=== PATIENT | male | born 1955 | race African-American/Black ===

== ENCOUNTER 2017-06-07 23:12 | Inpatient (IN) | payer MEDICAID ==
[2017-06-07] MEDS ORDERED: Sodium Chloride 0.9% 1,000 ML IV ONE (23:39)
[2017-06-08 00:22] LABS: % BASOPHILS 0.1 % (0.0-2.0); % EOSINOPHILS 2.9 % (0.0-5.0); % LYMPHOCYTES 24.2 % (20.0-50.0); % MONOCYTES 2.8 % (2.0-10.0); EOSINOPHILE ABSOLUTE 0.2 Th/cmm (0.1-0.4); HEMATOCRIT 39.2 % (41.0-60); HEMOGLOBIN 12.5 gm/dL (12-16); LYMPHOCYTE ABSOLUTE 1.9 Th/cmm (1.5-3.0); MEAN CELL VOLUME 94.6 fl (80-99); MEAN CORPUSCULAR HEMOGLOBIN 30.2 pg (26.0-30.0); MEAN CORPUSCULAR HGB CONC 31.9 pg (28.0-36.0); MEAN PLATELET VOLUME 8.4 fl; MONOCYTE ABSOLUTE 0.2 Th/cmm (0.3-1.0); NEUTROPHILE ABSOLUTE 5.6 Th/cmm (1.8-8.0); PLATELET COUNT 258 Th/cmm (150-400); RED BLOOD COUNT 4.14 Mil/cmm (4.30-5.70); RED CELL DISTRIBUTION WIDTH 13.5 % (11.5-20.0); WHITE BLOOD COUNT 7.9 Th/cmm (4.8-10.8)
[2017-06-08 00:31] LABS: INR 1.21 (0.5-1.4); PROTHROMBIN TIME (TEST) 12.7 SECONDS (9.5-11.5)
[2017-06-08 00:41] LABS: ALB/GLOB RATIO 0.9 (1.0-1.8); ALBUMIN 3.8 gm/dL (4.2-5.5); ANION GAP 13.3 (7.0-16.0); BILIRUBIN,TOTAL 0.3 mg/dL (0.3-1.0); CARBON DIOXIDE 25.9 mEq/L (21.0-31.0); GFR AFRICAN-AMERICAN 43.6 ml/min (>90); POTASSIUM SERUM 4.2 mEq/L (3.5-5.1); TOTAL PROTEIN,SERUM 8.1 gm/dL (6.0-8.3)
--- NOTE | 2017-06-08 01:30 | ED Physician Chart ---
ED Chief Complaint/HPI - Patient Information Date Seen:: 06/07/17 Time Seen:: 23:10 Chief Complaint:: Abdominal Pain History of Present Illness:: onset x one day of diffuse, crampy abdominal pain, diarrhea x 1 tonight; no report of trauma, H/As, neck pain, C/P, SOB, cough, A/N/V/C, fever, chills, or urinary s/s Allergies:: Allergies Allergy/AdvReac Type Severity Reaction Status Date / Time No Known Allergies Allergy Verified 06/07/17 23:16 Vitals:: Vital Signs - 8 hr 06/07/17 23:15 Temp 97.9 F HR 94 RR 18 BP 149/98 O2 Sat % 100 Historian:: Patient, EMS Review:: Nurse's Note Reviewed, Old Chart Reviewed, EMS run form Reviewed ED Review of Systems - Review of Systems General/Constitutional: No fever, No chills, No weight loss, No weakness, No diaphoresis, No edema, No loss of appetite Skin: No skin lesions, No rash, No bruising Head: No headache, No light-headedness Eyes: No loss of vision, No pain, No diplopia ENT: No earache, No nasal drainage, No sore throat, No tinnitus Neck: No neck pain, No swelling, No thyromegaly, No stiffness, No mass noted Cardio Vascular: No chest pain, No palpitations, No PND, No orthopnea, No edema Pulmonary: No SOB, No cough, No sputum, No wheezing GI: Nausea, Vomiting, Diarrhea, Pain, No melena, No hematochezia, No constipation, No hematemesis G/U: No dysuria, No frequency, No hematuria, No nacturia Musculoskeletal: No bone or joint pain, No back pain, No muscle pain Endocrine: No polyuria, No polydipsia Psychiatric: Prior psych history, Depression, Anxiety, No suicidal ideation, No homicidal ideation, No auditory hallucination, No visual hallucination Hematopoietic: No bruising, No lymphadenopathy Allergic/Immuno: No urticaria, No angioedema Neurological: No syncope, No focal symptoms, No weakness, No paresthesia, No headache, No seizure, No dizziness, Confusion, No vertigo ED Past Medical History - Past Medical History Obtainable: Yes Past Medical History: HTN, Dyslipidemia, Dementia Family History: HTN Social History: Non Smoker, No Alcohol, No Drug Use, Single, Care Facility Surgical History: None Psychiatricy History: Depression, Schizophrenia, Bipolar, Dementia Medication: Reviewed Family Medical History - Family Member Mother History Unknown: Yes ED Physical Exam - Physical Examination General/Constitutional: Awake, Well-developed, well-nourished, Alert, No distress, GCS 15, Non-toxic appearing, Ambulatory Head: Atraumatic Eyes: Lids, conjuctiva normal, PERRL, EOMI Skin: Nl inspection, No rash, No skin lesions, No ecchymosis, No lymphadenopathy Other Skin comments:: Poor turgor with dry MM ENMT: External ears, nose nl, TM canals nl, Nasal exam nl, Lips, teeth, gums nl , Oropharynx nl, Tonsils nl Neck: Nontender, Full ROM w/o pain, No JVD, No nuchal rigidity, No bruit, No mass, No stridor Respiratory: Nl effort/Exclusion, Clear to Auscultation, No Wheeze/Rhonchi/Rales Cardio Vascular: RRR, No murmur, gallop, rubs, NL S1 S2, Carotid/Femoral/Distal pulses equal bilaterally GI: No tenderness/rebounding/guarding, No organomegaly, No hernia, Normal BS's, Nondistended, No mass/bruits, No McBurney tenderness, Rectum exam nl : No CVA tenderness Extremities: No tenderness or effusion, Full ROM, normal strength in all extremities, No edema, Normal digits & nails Neuro/Psych: DTR's symmetric, Normal sensory exam, Normal motor strength, Judgement/insight normal, Mood normal, Normal gait, No focal deficits Other Neuro/Psych comments:: Disoriented and Confused Misc: Normal back, No paraspinal tenderness ED Labs/Radiology/EKG Results - Lab Results Results: Laboratory Tests 06/07/17 06/07/17 06/07/17 23:59 23:59 23:59 WBC 7.9 RBC 4.14 L Hgb 12.5 Hct 39.2 L MCV 94.6 MCH 30.2 H MCHC Differential 31.9 RDW 13.5 Plt Count 258 MPV 8.4 Neutrophils % 70.0 Lymphocytes % 24.2 Monocytes % 2.8 Eosinophils % 2.9 Basophils % 0.1 PT 12.7 H INR 1.21 Sodium Potassium Chloride Carbon Dioxide Anion Gap BUN Creatinine Est GFR ( Amer) Est GFR (Non-Af Amer) BUN/Creatinine Ratio Glucose Calcium Total Bilirubin AST ALT Alkaline Phosphatase Creatine Kinase Troponin I B-Natriuretic Peptide 12.8 Total Protein Albumin Globulin Albumin/Globulin Ratio Triglycerides Cholesterol LDL Cholesterol Direct HDL Cholesterol Amylase Lipase 06/07/17 06/07/17 23:59 23:59 WBC RBC Hgb Hct MCV MCH MCHC Differential RDW Plt Count MPV Neutrophils % Lymphocytes % Monocytes % Eosinophils % Basophils % PT INR Sodium 136 Potassium 4.2 Chloride 101 Carbon Dioxide 25.9 Anion Gap 13.3 BUN 42 H Creatinine 2.0 H Est GFR ( Amer) 43.6 Est GFR (Non-Af Amer) 36.0 BUN/Creatinine Ratio 21.0 Glucose 91 Calcium 10.0 Total Bilirubin 0.3 AST 20 ALT 25 Alkaline Phosphatase 140 H Creatine Kinase 50 Troponin I 0.01 B-Natriuretic Peptide Total Protein 8.1 Albumin 3.8 L Globulin 4.3 Albumin/Globulin Ratio 0.9 L Triglycerides 104 Cholesterol 147 LDL Cholesterol Direct 88 HDL Cholesterol 39 Amylase 60 Lipase 42 Comments:: unremarkable - EKG Interpretations EKG Time:: 23:30 Rate & Rhythm: 94; NSR Comments:: non-specific st-t changes ED Septic Shock - . Is Septic Shock (SBP<90, OR Lactate>4 mmol\L) present?: No - <6hrs of presentation: Vital Signs: Vital Signs - 8 hr 06/07/17 23:15 Temp 97.9 F HR 94 RR 18 BP 149/98 O2 Sat % 100 ED Reassessment (Disposition) - Reassessment Reassessment Condition:: Improved - Diagnosis Diagnosis:: Poor Oral Intake; Abdominal Pain; Dehydration; AGE; Gastroenteritis - Aftercare/Follow up Instructions Aftercare/Follow-Up Instructions:: Counseled pt regarding lab results/diagnosis & need follow up, Counseled pt & family regarding lab results/diagnosis & need follow up - Patient Disposition Discharge/Transfer:: Acute Care w/in this hosp Accepting Physician:: Dr. Long Time Called:: [id number] Time Responded:: 23:50 Admitted to:: Med/Surg Spoke to:: Dr. Long Admitting Medical Physician:: Dr. Long Condition at Disposition:: Stable, Improved
[2017-06-08 06:54] LABS: URINE MICROSCOPIC INDICATED? YES; URINE SOURCE CLEAN C
[2017-06-08 07:13] LABS: URINE BILIRUBIN NEGATIVE (NEGATIVE); URINE BLOOD NEGATIVE (NEGATIVE); URINE GLUCOSE (UA) NEGATIVE (NEGATIVE); URINE KETONE NEGATIVE (NEGATIVE); URINE LEUKOCYTE ESTERASE NEGATIVE (NEGATIVE); URINE NITRATE NEGATIVE (NEGATIVE); URINE PH 5.5 (4.6 - 8.0); URINE PROTEIN 30 mg/dL (NEGATIVE); URINE UROBILINOGEN 0.2 E.U./dL (0.2 - 1.0)
[2017-06-08 07:21] LABS: URINE BACTERIA FEW /hpf (NONE SEEN); URINE CLARITY CLEAR (CLEAR); URINE COLOR YELLOW; URINE EPITHELIAL CELLS OCCASIONAL /lpf (FEW); URINE RBC NONE SEEN /hpf (0-5); URINE WBC 0-2 /hpf (0-5)
[2017-06-08 07:22] LABS: URINE SPERM FEW /hpf (NONE SEEN)
[2017-06-08] MEDS ORDERED: Acetaminophen 500 MG TAB PO PRN (09:16)
[2017-06-08] MEDS ORDERED: Albuterol Nebulizer 2.5mg/3mL HHN PRN (09:18)
[2017-06-08] MEDS ORDERED: Maalox 30 mL Cup PO PRN (09:18)
[2017-06-08] MEDS: Sodium Chloride 0.9% 1,000 ML IV SCH (11:01)
[2017-06-08] MEDS: INSULIN ASPART, RECOMBINANT 100 UNITS/ML SUBQ SCH ×3 (11:09→20:32)
--- NOTE | 2017-06-08 11:31 | Internal Medicine Prog Note ---
Internal Medicine Subjective - Subjective Service Date: 06/08/17 ([facility] dictated [id number]) Internal Medicine Objective - Results Result Diagrams: 06/07/17 23:59 06/07/17 23:59 Recent Labs: Laboratory Last Values WBC 7.9 Th/cmm (4.8-10.8) 06/07/17 23:59 RBC 4.14 Mil/cmm (4.30-5.70) L 06/07/17 23:59 Hgb 12.5 gm/dL (12-16) 06/07/17 23:59 Hct 39.2 % (41.0-60) L 06/07/17 23:59 MCV 94.6 fl (80-99) 06/07/17 23:59 MCH 30.2 pg (26.0-30.0) H 06/07/17 23:59 MCHC Differential 31.9 pg (28.0-36.0) 06/07/17 23:59 RDW 13.5 % (11.5-20.0) 06/07/17 23:59 Plt Count 258 Th/cmm (150-400) 06/07/17 23:59 MPV 8.4 fl 06/07/17 23:59 Neutrophils % 70.0 % (40.0-80.0) 06/07/17 23:59 Lymphocytes % 24.2 % (20.0-50.0) 06/07/17 23:59 Monocytes % 2.8 % (2.0-10.0) 06/07/17 23:59 Eosinophils % 2.9 % (0.0-5.0) 06/07/17 23:59 Basophils % 0.1 % (0.0-2.0) 06/07/17 23:59 PT 12.7 SECONDS (9.5-11.5) H 06/07/17 23:59 INR 1.21 (0.5-1.4) 06/07/17 23:59 Sodium 136 mEq/L (136-145) 06/07/17 23:59 Potassium 4.2 mEq/L (3.5-5.1) 06/07/17 23:59 Chloride 101 mEq/L (98-107) 06/07/17 23:59 Carbon Dioxide 25.9 mEq/L (21.0-31.0) 06/07/17 23:59 Anion Gap 13.3 (7.0-16.0) 06/07/17 23:59 BUN 42 mg/dL (7-25) H 06/07/17 23:59 Creatinine 2.0 mg/dL (0.7-1.3) H 06/07/17 23:59 Est GFR ( Amer) 43.6 ml/min (>90) 06/07/17 23:59 Est GFR (Non-Af Amer) 36.0 ml/min 06/07/17 23:59 BUN/Creatinine Ratio 21.0 06/07/17 23:59 Glucose 91 mg/dL (70-105) 06/07/17 23:59 POC Glucose 102 MG/DL (70 - 105) 06/08/17 11:07 Calcium 10.0 mg/dL (8.6-10.3) 06/07/17 23:59 Total Bilirubin 0.3 mg/dL (0.3-1.0) 06/07/17 23:59 AST 20 U/L (13-39) 06/07/17 23:59 ALT 25 U/L (7-52) 06/07/17 23:59 Alkaline Phosphatase 140 U/L (34-104) H 06/07/17 23:59 Creatine Kinase 50 U/L (30-223) 06/07/17 23:59 Troponin I 0.01 ng/mL (0.01-0.05) 06/07/17 23:59 B-Natriuretic Peptide 12.8 pg/mL (5.0-100.0) 06/07/17 23:59 Total Protein 8.1 gm/dL (6.0-8.3) 06/07/17 23:59 Albumin 3.8 gm/dL (4.2-5.5) L 06/07/17 23:59 Globulin 4.3 gm/dL 06/07/17 23:59 Albumin/Globulin Ratio 0.9 (1.0-1.8) L 06/07/17 23:59 Triglycerides 104 mg/dL (<150) 06/07/17 23:59 Cholesterol 147 mg/dL (<200) 06/07/17 23:59 LDL Cholesterol Direct 88 mg/dL (75-193) 06/07/17 23:59 HDL Cholesterol 39 mg/dL (23-92) 06/07/17 23:59 Amylase 60 U/L (29-103) 06/07/17 23:59 Lipase 42 U/L (11-82) 06/07/17 23:59 Urine Source CLEAN C 06/08/17 06:45 Urine Color YELLOW 06/08/17 06:45 Urine Clarity CLEAR (CLEAR) 06/08/17 06:45 Urine pH 5.5 (4.6 - 8.0) 06/08/17 06:45 Ur Specific [place] 1.020 (1.005-1.030) 06/08/17 06:45 Urine Protein 30 mg/dL (NEGATIVE) H 06/08/17 06:45 Urine Glucose (UA) NEGATIVE mg/dL (NEGATIVE) 06/08/17 06:45 Urine Ketones NEGATIVE mg/dL (NEGATIVE) 06/08/17 06:45 Urine Blood NEGATIVE (NEGATIVE) 06/08/17 06:45 Urine Nitrate NEGATIVE (NEGATIVE) 06/08/17 06:45 Urine Bilirubin NEGATIVE (NEGATIVE) 06/08/17 06:45 Urine Urobilinogen 0.2 E.U./dL (0.2 - 1.0) 06/08/17 06:45 Ur Leukocyte Esterase NEGATIVE (NEGATIVE) 06/08/17 06:45 Urine RBC NONE SEEN /hpf (0-5) 06/08/17 06:45 Urine WBC 0-2 /hpf (0-5) 06/08/17 06:45 Ur Epithelial Cells OCCASIONAL /lpf (FEW) 06/08/17 06:45 Urine Bacteria FEW /hpf (NONE SEEN) 06/08/17 06:45 Urine Sperm FEW /hpf (NONE SEEN) 06/08/17 06:45 - Physical Exam Vitals and I&O: Vital Signs Temp 98 F 06/08/17 07:23 Pulse 68 06/08/17 10:56 Resp 16 06/08/17 10:56 BP 137/79 06/08/17 07:23 Pulse Ox 97 06/08/17 10:56 Active Medications: Current Medications Acetaminophen (Tylenol Extra Strength) 1,000 mg PO Q6HR PRN PRN Reason: Pain (Mild) Stop: 08/07/17 09:15 Al Hydrox/Mg Hydrox/Simethicone (Maalox) 30 ml PO Q6H PRN PRN Reason: Dyspepsia Stop: 08/07/17 09:17 Albuterol Sulfate (Albuterol 2.5mg/3ml Neb Ud) 2.5 mg HHN Q2HRT PRN PRN Reason: Shortness of Breath or Wheeze Stop: 08/07/17 09:17 Atorvastatin Calcium (Lipitor) 80 mg PO HS [facility] PRN Reason: Protocol Stop: 08/07/17 20:59 Bisacodyl (Dulcolax 10 Mg Supp) 10 mg RC DAILY PRN PRN Reason: Constipation Stop: 08/07/17 09:15 Brimonidine Tartrate (Alphagan 0.1% Oph Soln) 1 drop EACH EYE TID [facility] Stop: 08/07/17 13:59 Chlorthalidone (Hygroton) 50 mg PO DAILY [facility] Stop: 08/08/17 08:59 Docusate Sodium (Colace) 250 mg PO DAILY [facility] Stop: 08/08/17 08:59 Dorzolamide/Timolol (Cosopt Oph Soln) 1 drop EACH EYE BID [facility] Stop: 08/07/17 16:59 Gabapentin (Neurontin) 600 mg PO TID [facility] Stop: 08/07/17 13:59 Glipizide (Glucotrol) 5 mg PO HS [facility] Stop: 08/07/17 20:59 Glipizide (Glucotrol) 10 mg PO QDAC [facility] Stop: 08/08/17 07:29 Sodium Chloride (Nacl 0.9%) 1,000 mls @ 80 mls/hr IV .[id number] [facility] Stop: 08/07/17 09:29 Last Admin: 06/08/17 11:01 Dose: 80 mls/hr Insulin Aspart (Novolog) 0 units SUBQ ACHS [facility] PRN Reason: Protocol Stop: 08/07/17 11:29 Last Admin: 06/08/17 11:09 Dose: Not Given Latanoprost (Xalatan 0.005% Oph Soln) 1 drop EACH EYE HS [facility] Stop: 08/07/17 20:59 Levetiracetam (Keppra) 500 mg PO BID [facility] Stop: 08/07/17 16:59 Lidocaine (Lidoderm 5% Patch) 1 patch TD DAILY [facility] Stop: 08/08/17 08:59 Magnesium Hydroxide (Milk Of Magnesia) 30 ml PO HS [facility] Stop: 08/07/17 20:59 Ondansetron HCl (Zofran) 4 mg IV Q8H PRN PRN Reason: Nausea / Vomiting Stop: 08/07/17 09:17 Pantoprazole Sodium (Protonix) 40 mg PO BID [facility] Stop: 08/07/17 16:59 Rivaroxaban (Xarelto) 20 mg PO DAILY [facility] Stop: 08/07/17 09:59 Last Admin: 06/08/17 11:04 Dose: 20 mg Tamsulosin HCl (Flomax) 0.4 mg PO DAILY [facility] Stop: 08/07/17 09:59 Last Admin: 06/08/17 11:04 Dose: 0.4 mg Vitamin D (Vitamin D) 1,000 iu PO DAILY [facility] Stop: 08/08/17 08:59
--- NOTE | 2017-06-08 14:48 | History & Physical ---
ADMIT DATE: 06/08/2017 CHIEF COMPLAINT: Abdominal pain. HISTORY OF PRESENT ILLNESS: This is a 62-year-old male who is a resident of [facility], admitted here to the med/surg unit due to 1 day history of abdominal pain and diarrhea. The patient did not have any fevers at the correction for further management. The patient is now admitted to the med-surg unit. PAST MEDICAL HISTORY: Hypertension, hyperlipidemia, obesity, glaucoma, CKD, BPH, history of CVA. PAST SURGICAL HISTORY: Unknown. FAMILY HISTORY: Noncontributory. SOCIAL HISTORY: The patient is a correction resident, requiring 24-hour nursing care. REVIEW OF SYSTEMS: GENERAL: Denies any fevers and chills. CARDIOVASCULAR: Denies chest pain. RESPIRATORY: Denies shortness of breath. GASTROINTESTINAL: Denies nausea, vomiting, GI patient complains of nausea, denies any diarrhea. GENITOURINARY: Denies any dysuria. All other systems are reviewed and are negative. PHYSICAL EXAMINATION: GENERAL: The patient is awake, alert, appears weak, in no apparent distress. VITAL SIGNS: Temperature 98, heart rate 80, blood pressure 137/79, respirations 16, O2 96%. HEENT: Head; normocephalic, atraumatic. NECK: Supple. No mass. LUNGS: Clear bilaterally. HEART: Regular rate and rhythm. ABDOMEN: Soft, nontender. LABORATORY DATA: WBC 7.9, H and H ____ and 39.2, platelet of 258. PT 12.7, INR 1.21. Sodium 136, potassium 4.2, chloride 101, BUN 42, creatinine 2.0. Albumin 3.8. ASSESSMENT: 1. Abdominal pain, intractable nausea and diarrhea. 2. Hypertension. 3. Hyperlipidemia. 4. Obesity. 5. Glaucoma. 6. CKD. 7. BPH. 8. History of cerebrovascular accident. PLAN: The patient to be admitted to the med/surg unit. We will get GI on the case. We will get abdominal ultrasound. We will get psychiatry on the case as well. Keep patient on IV fluids for hydration. We will collect stool for ova and parasites and we will continue to follow this patient. JOB# [id number]
[2017-06-08] MEDS ORDERED: Pneumococcal Vaccine 0.5 mL Vial IM ONE (15:03)
[2017-06-08] MEDS: Pantoprazole 40 mg EC Tab PO SCH (17:43)
[2017-06-08] MEDS: Magnesium Hydroxide (MOM) 30 mL UDC PO SCH (20:29)
[2017-06-09] MEDS: Sodium Chloride 0.9% 1,000 ML IV SCH ×2 (01:19→16:30)
[2017-06-09] MEDS: INSULIN ASPART, RECOMBINANT 100 UNITS/ML SUBQ SCH ×4 (06:31→20:50)
[2017-06-09] MEDS ORDERED: Non-Formulary Item 1 EA (Glipizide [Glipizide] 10 MG) PO SCH (07:30)
[2017-06-09] MEDS ORDERED: ALFUZOSIN HCL 10 MG PO SCH (09:00)
[2017-06-09] MEDS ORDERED: Non-Formulary Item 1 EA (Rivaroxaban [Xarelto] 20 MG) PO SCH (09:00)
[2017-06-09] MEDS: Lidocaine 5% Patch TD SCH (10:00)
[2017-06-09] MEDS: Pantoprazole 40 mg EC Tab PO SCH ×2 (10:03→16:30)
--- NOTE | 2017-06-09 11:09 | Diagnostic Imaging Report ---
Abdominal ultrasound HISTORY: Pain Exam is limited due to patient size, body habitus, and bowel gas. The liver exhibits a homogeneous parenchyma. No focal lesions. The gallbladder appears normal. No calculi are seen. No biliary dilatation. The pancreas cannot be seen due to bowel gas. The right kidney is normal in size. A 4 mm echogenic density is noted that may be associated with calculus. No hydronephrosis. A 4.5 cm sonolucent lesion noted in the lower pole consistent with a cyst. The left kidney is normal in size. No focal lesions. No hydronephrosis. No other definite retroperitoneal or intra-abdominal abnormalities. IMPRESSION: 1. Limited exam due to patient size, body habitus, bowel gas 2. 4 mm echogenic density within the right kidney that may represent a calculus. No hydronephrosis. 3. Right renal cyst 4. No other definite acute abnormalities
--- NOTE | 2017-06-09 12:58 | Internal Medicine Prog Note ---
Internal Medicine Subjective - Subjective Patient seen and examined:: with staff, chart reviewed Patient is:: asleep, interactive, arousable, in bed, denies any new complaints Patient Complaints of:: congestion, vomitting, unable to sleep Per staff patient has:: no adverse event, poor appetite, tolerating meds Internal Medicine Objective - Results Result Diagrams: 06/07/17 23:59 06/07/17 23:59 Recent Labs: Laboratory Last Values WBC 7.9 Th/cmm (4.8-10.8) 06/07/17 23:59 RBC 4.14 Mil/cmm (4.30-5.70) L 06/07/17 23:59 Hgb 12.5 gm/dL (12-16) 06/07/17 23:59 Hct 39.2 % (41.0-60) L 06/07/17 23:59 MCV 94.6 fl (80-99) 06/07/17 23:59 MCH 30.2 pg (26.0-30.0) H 06/07/17 23: MCHC Differential 31.9 pg (28.0-36.0) 06/07/17 23: RDW 13.5 % (11.5-20.0) 06/07/17 23:59 Plt Count 258 Th/cmm (150-400) 06/07/17 23:59 MPV 8.4 fl 06/07/17 23:59 Neutrophils % 70.0 % (40.0-80.0) 06/07/17 23:59 Lymphocytes % 24.2 % (20.0-50.0) 06/07/17 23: Monocytes % 2.8 % (2.0-10.0) 06/07/17 23:59 Eosinophils % 2.9 % (0.0-5.0) 06/07/17 23: Basophils % 0.1 % (0.0-2.0) 06/07/17 23:59 PT 12.7 SECONDS (9.5-11.5) H 06/07/17 23:59 INR 1.21 (0.5-1.4) 06/07/17 23:59 Sodium 136 mEq/L (136-145) 06/07/17 23:59 Potassium 4.2 mEq/L (3.5-5.1) 06/07/17 23:59 Chloride 101 mEq/L (98-107) 06/07/17 23:59 Carbon Dioxide 25.9 mEq/L (21.0-31.0) 06/07/17 23:59 Anion Gap 13.3 (7.0-16.0) 06/07/17 23:59 BUN 42 mg/dL (7-25) H 06/07/17 23:59 Creatinine 2.0 mg/dL (0.7-1.3) H 06/07/17 23:59 Est GFR ( Amer) 43.6 ml/min (>90) 06/07/17 23:59 Est GFR (Non-Af Amer) 36.0 ml/min 06/07/17 23:59 BUN/Creatinine Ratio 21.0 06/07/17 23:59 Glucose 91 mg/dL (70-105) 06/07/17 23:59 POC Glucose 97 MG/DL (70 - 105) 06/09/17 12:42 Calcium 10.0 mg/dL (8.6-10.3) 06/07/17 23:59 Total Bilirubin 0.3 mg/dL (0.3-1.0) 06/07/17 23:59 AST 20 U/L (13-39) 06/07/17 23:59 ALT 25 U/L (7-52) 06/07/17 23:59 Alkaline Phosphatase 140 U/L (34-104) H 06/07/17 23:59 Creatine Kinase 50 U/L (30-223) 06/07/17 23:59 Troponin I 0.01 ng/mL (0.01-0.05) 06/07/17 23:59 B-Natriuretic Peptide 12.8 pg/mL (5.0-100.0) 06/07/17 23:59 Total Protein 8.1 gm/dL (6.0-8.3) 06/07/17 23:59 Albumin 3.8 gm/dL (4.2-5.5) L 06/07/17 23:59 Globulin 4.3 gm/dL 06/07/17 23:59 Albumin/Globulin Ratio 0.9 (1.0-1.8) L 06/07/17 23:59 Triglycerides 104 mg/dL (<150) 06/07/17 23:59 Cholesterol 147 mg/dL (<200) 06/07/17 23:59 LDL Cholesterol Direct 88 mg/dL (75-193) 06/07/17 23:59 HDL Cholesterol 39 mg/dL (23-92) 06/07/17 23:59 Amylase 60 U/L (29-103) 06/07/17 23:59 Lipase 42 U/L (11-82) 06/07/17 23:59 Urine Source CLEAN C 06/08/17 06:45 Urine Color YELLOW 06/08/17 06:45 Urine Clarity CLEAR (CLEAR) 06/08/17 06:45 Urine pH 5.5 (4.6 - 8.0) 06/08/17 06:45 Ur Specific [place] 1.020 (1.005-1.030) 06/08/17 06:45 Urine Protein 30 mg/dL (NEGATIVE) H 06/08/17 06:45 Urine Glucose (UA) NEGATIVE mg/dL (NEGATIVE) 06/08/17 06:45 Urine Ketones NEGATIVE mg/dL (NEGATIVE) 06/08/17 06:45 Urine Blood NEGATIVE (NEGATIVE) 06/08/17 06:45 Urine Nitrate NEGATIVE (NEGATIVE) 06/08/17 06:45 Urine Bilirubin NEGATIVE (NEGATIVE) 06/08/17 06:45 Urine Urobilinogen 0.2 E.U./dL (0.2 - 1.0) 06/08/17 06:45 Ur Leukocyte Esterase NEGATIVE (NEGATIVE) 06/08/17 06:45 Urine RBC NONE SEEN /hpf (0-5) 06/08/17 06:45 Urine WBC 0-2 /hpf (0-5) 06/08/17 06:45 Ur Epithelial Cells OCCASIONAL /lpf (FEW) 06/08/17 06:45 Urine Bacteria FEW /hpf (NONE SEEN) 06/08/17 06:45 Urine Sperm FEW /hpf (NONE SEEN) 06/08/17 06:45 - Physical Exam Vitals and I&O: Vital Signs Temp 97.2 F 06/09/17 11:19 Pulse 68 06/09/17 11:22 Resp 16 06/09/17 11:22 BP 130/65 06/09/17 11:19 Pulse Ox 98 06/09/17 11:22 Intake & Output 06/08/17 06/09/17 06/09/17 18:59 06:59 18:59 Intake Total 500 1240 Output Total 800 600 Balance -300 640 Weight (lbs) 113.852 kg 122.016 kg Intake: Intake, IV Amount 1000 Sodium Chloride 0.9% 1, 1000 000 ml @ 80 mls/hr IV . [id number] [facility] Rx#:[id number] Oral 500 240 Output: Urine 800 600 Other: # Voids 800 # Bowel Movements 2 1 Stool Characteristics Soft Liquid Weight Source Bedscale Bedscale Active Medications: Current Medications Acetaminophen (Tylenol Extra Strength) 1,000 mg PO Q6HR PRN PRN Reason: Pain (Mild) Stop: 08/07/17 09:15 Al Hydrox/Mg Hydrox/Simethicone (Maalox) 30 ml PO Q6H PRN PRN Reason: Dyspepsia Stop: 08/07/17 09:17 Albuterol Sulfate (Albuterol 2.5mg/3ml Neb Ud) 2.5 mg HHN Q2HRT PRN PRN Reason: Shortness of Breath or Wheeze Stop: 08/07/17 09:17 Atorvastatin Calcium (Lipitor) 80 mg PO HS [facility] PRN Reason: Protocol Stop: 08/07/17 20:59 Last Admin: 06/08/17 20:29 Dose: 80 mg Bisacodyl (Dulcolax 10 Mg Supp) 10 mg RC DAILY PRN PRN Reason: Constipation Stop: 08/07/17 09:15 Brimonidine Tartrate (Alphagan 0.1% Ophth Soln) 1 drop EACH EYE TID [facility] Stop: 08/07/17 13:59 Last Admin: 06/09/17 10:02 Dose: 1 drop Chlorthalidone (Hygroton) 50 mg PO DAILY [facility] Stop: 08/08/17 08:59 Last Admin: 06/09/17 10:01 Dose: 50 mg Docusate Sodium (Colace) 250 mg PO DAILY [facility] Stop: 08/08/17 08:59 Last Admin: 06/09/17 10:03 Dose: 250 mg Dorzolamide/Timolol (Cosopt Ophth Soln) 1 drop EACH EYE BID [facility] Stop: 08/07/17 16:59 Last Admin: 06/09/17 10:02 Dose: 1 drop Gabapentin (Neurontin) 600 mg PO TID [facility] Stop: 08/07/17 13:59 Last Admin: 06/09/17 10:12 Dose: 600 mg Glipizide (Glucotrol) 5 mg PO HS [facility] Stop: 08/07/17 20:59 Last Admin: 06/08/17 20:30 Dose: 5 mg Glipizide (Glucotrol) 10 mg PO QDAC [facility] Stop: 08/08/17 07:29 Last Admin: 06/09/17 06:36 Dose: Not Given Sodium Chloride (Nacl 0.9%) 1,000 mls @ 80 mls/hr IV .[id number] [facility] Stop: 08/07/17 09:29 Last Admin: 06/09/17 01:19 Dose: 80 mls/hr Insulin Aspart (Novolog) 0 units SUBQ ACHS [facility] PRN Reason: Protocol Stop: 08/07/17 11:29 Last Admin: 06/09/17 12:00 Dose: Not Given Latanoprost (Xalatan 0.005% Ophth Soln) 1 drop EACH EYE HS [facility] Stop: 08/07/17 20:59 Last Admin: 06/08/17 20:40 Dose: Not Given Levetiracetam (Keppra) 500 mg PO BID [facility] Stop: 08/07/17 16:59 Last Admin: 06/09/17 10:04 Dose: 500 mg Lidocaine (Lidoderm 5% Patch) 1 patch TD DAILY [facility] Stop: 08/08/17 08:59 Last Admin: 06/09/17 10:00 Dose: 1 patch Magnesium Hydroxide (Milk Of Magnesia) 30 ml PO HS [facility] Stop: 08/07/17 20:59 Last Admin: 06/08/17 20:29 Dose: 30 ml Ondansetron HCl (Zofran) 4 mg IV Q8H PRN PRN Reason: Nausea / Vomiting Stop: 08/07/17 09:17 Pantoprazole Sodium (Protonix) 40 mg PO BID [facility] Stop: 08/07/17 16:59 Last Admin: 06/09/17 10:03 Dose: 40 mg Rivaroxaban (Xarelto) 20 mg PO DAILY [facility] Stop: 08/07/17 09:59 Last Admin: 06/09/17 10:04 Dose: 20 mg Tamsulosin HCl (Flomax) 0.4 mg PO DAILY [facility] Stop: 08/07/17 09:59 Last Admin: 06/09/17 10:04 Dose: 0.4 mg Vitamin D (Vitamin D) 1,000 iu PO DAILY [facility] Stop: 08/08/17 08:59 Last Admin: 06/09/17 10:02 Dose: 1,000 iu General: congested HEENT: NC/AT, PERRLA, poor dentition Neck: Supple, No thyromegaly, No LAD Lungs: CTAB Cardiovascular: RRR, Normal S1, Normal S2, with murmur Abdomen: soft, non-tender, globular, non-distended, positive bowel sound Extremities: excoriation Neurological: no change Internal Medicine Assmt/Plan - Assessment Assessment: abd pain w n/v htn obesity bph glaucoma cva - Plan Plan: cont on gentle hydration gi follow up will review abd ultrasound cpm dw rn add bactroban to nares
--- NOTE | 2017-06-09 20:05 | Psychosocial Evaluation ---
DATE OF SERVICE: 06/09/2017 REQUESTING PHYSICIAN: Dr. Long. REASON FOR CONSULTATION: Rule out depression. HISTORY OF PRESENT ILLNESS: This patient is a 62-year-old resident of [facility] in [place]. Information obtained by interviewing the patient as well as reviewing the admission paper. JUSTIFICATION OF HOSPITALIZATION: The patient has been admitted over here following abdominal pain and Psychiatric consultation is requested to address the issue of the depression. The patient is spoken to. Chart is reviewed and staff was spoken to. The patient is reporting that he has been friend with the girlfriend in the facility for a couple of weeks and that the girlfriend told him that she just wanted to be a friend and has nothing to do more than that and the patient got upset and has swallowed shampoo in an attempt to hurt himself. The patient has been admitted for diarrhea and the patient is currently medically stabilized and Psychiatric consultation is called to address the issue of the depression. The patient is stating that he is under the care of her psychiatrist and has been on medication for a couple of years. The patient, however, is stating that he is not suicidal. He wants to get some help even when he gets out of the hospital. PAST PSYCHIATRIC HISTORY: The patient denies any prior psychiatric hospitalizations. SOCIAL HISTORY: The patient is a resident of [facility]. The patient is reporting that his mother in July of last year and he does not have any siblings. No other family members are there. MENTAL STATUS EXAMINATION: The patient is a 62-year-old, looking his stated age, moderately obese, cooperative. Eye contact is fair. Mood is noted to be anxious. Affect is constricted. The patient is not suicidal or homicidal. The patient denies any auditory hallucinations. No delusions are noted. Insight and judgment at this time are noted to be fair. Impulse control is also noted to be fair. The patient is motivated for treatment. The patient's coping skills are noted to be fair at this time. The patient is alert and oriented x 3. DIAGNOSTIC IMPRESSION: Major depressive disorder, recurrent and moderate. PLAN: To start the patient on Lexapro and follow the patient with supportive therapy. [facility]# [id number]
[2017-06-09] MEDS: Magnesium Hydroxide (MOM) 30 mL UDC PO SCH (20:45)
--- NOTE | 2017-06-09 23:29 | Consultation ---
DATE OF CONSULTATION: 06/09/2017 GASTROENTEROLOGY CONSULTATION REQUESTING PHYSICIAN: Nitin Long D.O. REASON FOR CONSULTATION: Abdominal pain with nausea and vomiting. HISTORY OF PRESENT ILLNESS: A 62-year-old male with old stroke, glaucoma, obesity, hypertension, BPH, and hyperlipidemia, admitted for vague abdominal pain for a 1-2 day duration with nausea, vomiting and diarrhea. He reportedly drank some shampoo at his nursing facility. He currently complains of no abdominal symptoms. He has somewhat poor appetite. PAST MEDICAL HISTORY: As above. MEDICATIONS: Here are acetaminophen, Maalox, albuterol, Lipitor, Dulcolax suppository p.r.n., eyedrops, chlorthalidone, Colace, Lexapro, Neurontin, Glucotrol, insulin sliding scale, Keppra, milk of magnesia, Bactroban ointment, Zofran p.r.n., Protonix twice daily, Xarelto, Flomax, and vitamin D. ALLERGIES: None. SOCIAL HISTORY: custodial resident. No known tobacco, alcohol, or drugs. FAMILY HISTORY: Noncontributory. REVIEW OF SYSTEMS: A comprehensive 12-point review of system was conducted and is only positive for those signs or symptoms present in the history of present illness. PHYSICAL EXAMINATION: VITAL SIGNS: Temperature 97.4, blood pressure 148/87, pulse of 72, respirations 19, and O2 sats 97%. GENERAL: The patient is well-developed -[place] male in no acute distress. HEENT: Sclerae are anicteric. Oropharynx is clear. CARDIOVASCULAR: Regular rate and rhythm. LUNGS: Clear to auscultation bilaterally. ABDOMEN: Soft, nontender, and nondistended. EXTREMITIES: No clubbing, cyanosis, or edema. RECTAL: Deferred. LABORATORY DATA AND IMAGING: Complete blood count is normal. Coagulation profile is normal. Chemistries include a creatinine of 2.0. Liver enzymes normal except for alkaline phosphatase mildly elevated to 140 and albumin 3.8. Urinalysis essentially clear. IMPRESSION: 1. Abdominal pain with nausea, vomiting and diarrhea, perhaps related to shampoo ingestion versus gastroesophageal reflux disease, gastritis, peptic ulcer disease, colitis, neoplasm, etc. Symptoms now improved. 2. History of obesity, hypertension, benign prostatic hypertrophy, hyperlipidemia, glaucoma, and old stroke. 3. Negative abdominal ultrasound. RECOMMENDATIONS: 1. Check stool studies if diarrhea present. 2. Withhold stool softeners if diarrhea present. 3. Diet as tolerated. 4. Protonix. 5. Consider endoscopic workup with endoscopy and colonoscopy if symptoms persist. Otherwise, conservative nonendoscopic management is recommended if the symptoms have resolved. Thank you, Dr. Nitin Long for involving us in the care of your patient. If you have any further questions, please call us. JOB# [id number] MTDD
[2017-06-10] MEDS: Sodium Chloride 0.9% 1,000 ML IV SCH (05:59)
[2017-06-10 06:38] LABS: % BASOPHILS 0.4 % (0.0-2.0); % EOSINOPHILS 4.5 % (0.0-5.0); % LYMPHOCYTES 36.2 % (20.0-50.0); % MONOCYTES 6.3 % (2.0-10.0); % NEUTROPHILS 52.6 % (40.0-80.0); EOSINOPHILE ABSOLUTE 0.3 Th/cmm (0.1-0.4); HEMATOCRIT 34.9 % (41.0-60); HEMOGLOBIN 11.4 gm/dL (12-16); LYMPHOCYTE ABSOLUTE 2.3 Th/cmm (1.5-3.0); MEAN CELL VOLUME 94.5 fl (80-99); MEAN CORPUSCULAR HGB CONC 32.8 pg (28.0-36.0); MEAN PLATELET VOLUME 8.3 fl; MONOCYTE ABSOLUTE 0.4 Th/cmm (0.3-1.0); NEUTROPHILE ABSOLUTE 3.3 Th/cmm (1.8-8.0); PLATELET COUNT 263 Th/cmm (150-400); RED BLOOD COUNT 3.69 Mil/cmm (4.30-5.70); RED CELL DISTRIBUTION WIDTH 13.3 % (11.5-20.0); WHITE BLOOD COUNT 6.3 Th/cmm (4.8-10.8)
[2017-06-10] MEDS: INSULIN ASPART, RECOMBINANT 100 UNITS/ML SUBQ SCH ×4 (06:47→20:51)
[2017-06-10 06:50] LABS: ALB/GLOB RATIO 0.9 (1.0-1.8); ALBUMIN 3.4 gm/dL (4.2-5.5); ALKALINE PHOSPHATASE 126 U/L (34-104); ANION GAP 7.9 (7.0-16.0); BILIRUBIN,TOTAL 0.3 mg/dL (0.3-1.0); BUN - UREA NITROGEN 25 mg/dL (7-25); CALCIUM SERUM 9.4 mg/dL (8.6-10.3); CHLORIDE 105 mEq/L (98-107); CREATININE - SERUM 1.5 mg/dL (0.7-1.3); GFR AFRICAN-AMERICAN > 60.0 ml/min (>90); GFR NON AFRICAN-AMERICAN 50.2 ml/min; GLUCOSE 86 mg/dL (70-105); POTASSIUM SERUM 3.9 mEq/L (3.5-5.1); SGOT 15 U/L (13-39); SGPT/ALT 19 U/L (7-52); SODIUM SERUM 138 mEq/L (136-145); TOTAL PROTEIN,SERUM 7.1 gm/dL (6.0-8.3)
[2017-06-10 07:04] LABS: BNP 13.9 pg/mL (5.0-100.0)
[2017-06-10] MEDS: Pantoprazole 40 mg EC Tab PO SCH ×2 (08:50→16:07)
[2017-06-10] MEDS: Lidocaine 5% Patch TD SCH (08:51)
--- NOTE | 2017-06-10 13:43 | Internal Medicine Prog Note ---
Internal Medicine Subjective - Subjective Service Date: 06/10/17 Patient seen and examined:: with staff Patient is:: asleep, interactive, arousable, in bed, denies any new complaints Patient Complaints of:: congestion, vomitting, unable to sleep Per staff patient has:: no adverse event, poor appetite, tolerating meds Internal Medicine Objective - Results Result Diagrams: 06/10/17 05:50 06/10/17 05:50 Recent Labs: Laboratory Last Values WBC 6.3 Th/cmm (4.8-10.8) 06/10/17 05:50 RBC 3.69 Mil/cmm (4.30-5.70) L 06/10/17 05:50 Hgb 11.4 gm/dL (12-16) L 06/10/17 05:50 Hct 34.9 % (41.0-60) L 06/10/17 05:50 MCV 94.5 fl (80-99) 06/10/17 05:50 MCH 31.0 pg (26.0-30.0) H 06/10/17 05:50 MCHC Differential 32.8 pg (28.0-36.0) 06/10/17 05:50 RDW 13.3 % (11.5-20.0) 06/10/17 05:50 Plt Count 263 Th/cmm (150-400) 06/10/17 05:50 MPV 8.3 fl 06/10/17 05:50 Neutrophils % 52.6 % (40.0-80.0) 06/10/17 05:50 Lymphocytes % 36.2 % (20.0-50.0) 06/10/17 05:50 Monocytes % 6.3 % (2.0-10.0) 06/10/17 05:50 Eosinophils % 4.5 % (0.0-5.0) 06/10/17 05:50 Basophils % 0.4 % (0.0-2.0) 06/10/17 05:50 PT 12.7 SECONDS (9.5-11.5) H 06/07/17 23:59 INR 1.21 (0.5-1.4) 06/07/17 23:59 Sodium 138 mEq/L (136-145) 06/10/17 05:50 Potassium 3.9 mEq/L (3.5-5.1) 06/10/17 05:50 Chloride 105 mEq/L (98-107) 06/10/17 05:50 Carbon Dioxide 29.0 mEq/L (21.0-31.0) 06/10/17 05:50 Anion Gap 7.9 (7.0-16.0) 06/10/17 05:50 BUN 25 mg/dL (7-25) 06/10/17 05:50 Creatinine 1.5 mg/dL (0.7-1.3) H 06/10/17 05:50 Est GFR ( Amer) > 60.0 ml/min (>90) 06/10/17 05:50 Est GFR (Non-Af Amer) 50.2 ml/min 06/10/17 05:50 BUN/Creatinine Ratio 16.7 06/10/17 05:50 Glucose 86 mg/dL (70-105) 06/10/17 05:50 POC Glucose 77 MG/DL (70 - 105) 06/10/17 12:00 Calcium 9.4 mg/dL (8.6-10.3) 06/10/17 05:50 Total Bilirubin 0.3 mg/dL (0.3-1.0) 06/10/17 05:50 AST 15 U/L (13-39) 06/10/17 05:50 ALT 19 U/L (7-52) 06/10/17 05:50 Alkaline Phosphatase 126 U/L (34-104) H 06/10/17 05:50 Ammonia 35 umol/L (16-53) 06/10/17 05:50 Creatine Kinase 50 U/L (30-223) 06/07/17 23:59 Troponin I 0.01 ng/mL (0.01-0.05) 06/07/17 23:59 B-Natriuretic Peptide 13.9 pg/mL (5.0-100.0) 06/10/17 05:50 Total Protein 7.1 gm/dL (6.0-8.3) 06/10/17 05:50 Albumin 3.4 gm/dL (4.2-5.5) L 06/10/17 05:50 Globulin 3.7 gm/dL 06/10/17 05:50 Albumin/Globulin Ratio 0.9 (1.0-1.8) L 06/10/17 05:50 Triglycerides 104 mg/dL (<150) 06/07/17 23:59 Cholesterol 147 mg/dL (<200) 06/07/17 23:59 LDL Cholesterol Direct 88 mg/dL (75-193) 06/07/17 23:59 HDL Cholesterol 39 mg/dL (23-92) 06/07/17 23:59 Amylase 60 U/L (29-103) 06/07/17 23:59 Lipase 42 U/L (11-82) 06/07/17 23:59 Urine Source CLEAN C 06/08/17 06:45 Urine Color YELLOW 06/08/17 06:45 Urine Clarity CLEAR (CLEAR) 06/08/17 06:45 Urine pH 5.5 (4.6 - 8.0) 06/08/17 06:45 Ur Specific [place] 1.020 (1.005-1.030) 06/08/17 06:45 Urine Protein 30 mg/dL (NEGATIVE) H 06/08/17 06:45 Urine Glucose (UA) NEGATIVE mg/dL (NEGATIVE) 06/08/17 06:45 Urine Ketones NEGATIVE mg/dL (NEGATIVE) 06/08/17 06:45 Urine Blood NEGATIVE (NEGATIVE) 06/08/17 06:45 Urine Nitrate NEGATIVE (NEGATIVE) 06/08/17 06:45 Urine Bilirubin NEGATIVE (NEGATIVE) 06/08/17 06:45 Urine Urobilinogen 0.2 E.U./dL (0.2 - 1.0) 06/08/17 06:45 Ur Leukocyte Esterase NEGATIVE (NEGATIVE) 06/08/17 06:45 Urine RBC NONE SEEN /hpf (0-5) 06/08/17 06:45 Urine WBC 0-2 /hpf (0-5) 06/08/17 06:45 Ur Epithelial Cells OCCASIONAL /lpf (FEW) 06/08/17 06:45 Urine Bacteria FEW /hpf (NONE SEEN) 06/08/17 06:45 Urine Sperm FEW /hpf (NONE SEEN) 06/08/17 06:45 - Physical Exam Vitals and I&O: Vital Signs Temp 97.7 F 06/10/17 08:00 Pulse 69 06/10/17 08:49 Resp 18 06/10/17 08:40 BP 156/97 06/10/17 08:49 Pulse Ox 94 06/10/17 08:40 Intake & Output 06/09/17 06/10/17 06/10/17 18:59 06:59 18:59 Intake Total 1000 1400 Output Total 700 Balance 1000 700 Weight (lbs) 269 lb 255 lb 9.6 oz Intake: Intake, IV Amount 1000 1000 Sodium Chloride 0.9% 1, 1000 1000 000 ml @ 80 mls/hr IV . [id number] [facility] Rx#:[id number] Oral 400 Output: Urine 700 Other: # Bowel Movements 0 Stool Characteristics Liquid Weight Source Bedscale Bedscale Active Medications: Current Medications Acetaminophen (Tylenol Extra Strength) 1,000 mg PO Q6HR PRN PRN Reason: Pain (Mild) Stop: 08/07/17 09:15 Al Hydrox/Mg Hydrox/Simethicone (Maalox) 30 ml PO Q6H PRN PRN Reason: Dyspepsia Stop: 08/07/17 09:17 Albuterol Sulfate (Albuterol 2.5mg/3ml Neb Ud) 2.5 mg HHN Q2HRT PRN PRN Reason: Shortness of Breath or Wheeze Stop: 08/07/17 09:17 Atorvastatin Calcium (Lipitor) 80 mg PO HS [facility] PRN Reason: Protocol Stop: 08/07/17 20:59 Last Admin: 06/09/17 20:45 Dose: 80 mg Bisacodyl (Dulcolax 10 Mg Supp) 10 mg RC DAILY PRN PRN Reason: Constipation Stop: 08/07/17 09:15 Brimonidine Tartrate (Alphagan 0.1% Ophth Soln) 1 drop EACH EYE TID [facility] Stop: 08/07/17 13:59 Last Admin: 06/10/17 13:14 Dose: 1 drop Chlorthalidone (Hygroton) 50 mg PO DAILY [facility] Stop: 08/08/17 08:59 Last Admin: 06/10/17 08:49 Dose: 50 mg Docusate Sodium (Colace) 250 mg PO DAILY [facility] Stop: 08/08/17 08:59 Last Admin: 06/10/17 08:50 Dose: 250 mg Dorzolamide/Timolol (Cosopt Ophth Soln) 1 drop EACH EYE BID [facility] Stop: 08/07/17 16:59 Last Admin: 06/10/17 08:48 Dose: 1 drop Escitalopram Oxalate (Lexapro) 10 mg PO DAILY [facility] PRN Reason: Protocol Stop: 08/08/17 19:44 Last Admin: 06/10/17 08:50 Dose: 10 mg Gabapentin (Neurontin) 600 mg PO TID [facility] Stop: 08/07/17 13:59 Last Admin: 06/10/17 13:14 Dose: 600 mg Glipizide (Glucotrol) 5 mg PO HS [facility] Stop: 08/07/17 20:59 Last Admin: 06/09/17 20:45 Dose: 5 mg Glipizide (Glucotrol) 10 mg PO QDAC [facility] Stop: 08/08/17 07:29 Last Admin: 06/10/17 06:48 Dose: 10 mg Sodium Chloride (Nacl 0.9%) 1,000 mls @ 80 mls/hr IV .[id number] [facility] Stop: 08/07/17 09:29 Last Admin: 06/10/17 05:59 Dose: 80 mls/hr Insulin Aspart (Novolog) 0 units SUBQ ACHS [facility] PRN Reason: Protocol Stop: 08/07/17 11:29 Last Admin: 06/10/17 12:20 Dose: Not Given Latanoprost (Xalatan 0.005% Ophth Soln) 1 drop EACH EYE HS [facility] Stop: 08/07/17 20:59 Last Admin: 06/09/17 20:50 Dose: Not Given Levetiracetam (Keppra) 500 mg PO BID [facility] Stop: 08/07/17 16:59 Last Admin: 06/10/17 08:49 Dose: 500 mg Lidocaine (Lidoderm 5% Patch) 1 patch TD DAILY [facility] Stop: 08/08/17 08:59 Last Admin: 06/10/17 08:51 Dose: 1 patch Magnesium Hydroxide (Milk Of Magnesia) 30 ml PO HS [facility] Stop: 08/07/17 20:59 Last Admin: 06/09/17 20:45 Dose: 30 ml Mupirocin (Bactroban Oint) 1 appl TP BID [facility] Stop: 08/08/17 16:59 Last Admin: 06/10/17 08:48 Dose: 1 appl Ondansetron HCl (Zofran) 4 mg IV Q8H PRN PRN Reason: Nausea / Vomiting Stop: 08/07/17 09:17 Pantoprazole Sodium (Protonix) 40 mg PO BID [facility] Stop: 08/07/17 16:59 Last Admin: 06/10/17 08:50 Dose: 40 mg Rivaroxaban (Xarelto) 20 mg PO DAILY [facility] Stop: 08/07/17 09:59 Last Admin: 06/10/17 08:50 Dose: 20 mg Tamsulosin HCl (Flomax) 0.4 mg PO DAILY [facility] Stop: 08/07/17 09:59 Last Admin: 06/10/17 08:50 Dose: 0.4 mg Vitamin D (Vitamin D) 1,000 iu PO DAILY [facility] Stop: 08/08/17 08:59 Last Admin: 06/10/17 08:50 Dose: 1,000 iu General: congested HEENT: NC/AT, PERRLA, poor dentition Neck: Supple, No thyromegaly, No LAD Lungs: CTAB Cardiovascular: RRR, Normal S1, Normal S2, with murmur Abdomen: soft, non-tender, globular, non-distended, positive bowel sound Extremities: excoriation Neurological: no change Internal Medicine Assmt/Plan - Assessment Assessment: abd pain w n/v htn obesity bph glaucoma cva - Plan Plan: dc planning in am cont on gentle hydration gi follow up cpm
[2017-06-10 15:56] LABS: A1C % 7.2 % (4.0-6.0)
[2017-06-10] MEDS: Magnesium Hydroxide (MOM) 30 mL UDC PO SCH (20:52)
[2017-06-11 05:53] LABS: % BASOPHILS 1.2 % (0.0-2.0); % EOSINOPHILS 3.7 % (0.0-5.0); % LYMPHOCYTES 29.3 % (20.0-50.0); % MONOCYTES 5.8 % (2.0-10.0); BASOPHILE ABSOLUTE 0.1 Th/cumm (0-0.2); EOSINOPHILE ABSOLUTE 0.3 Th/cmm (0.1-0.4); HEMATOCRIT 39.8 % (41.0-60); HEMOGLOBIN 12.7 gm/dL (12-16); LYMPHOCYTE ABSOLUTE 2.2 Th/cmm (1.5-3.0); MEAN CELL VOLUME 96.7 fl (80-99); MEAN CORPUSCULAR HEMOGLOBIN 30.8 pg (26.0-30.0); MEAN CORPUSCULAR HGB CONC 31.9 pg (28.0-36.0); MEAN PLATELET VOLUME 7.7 fl; MONOCYTE ABSOLUTE 0.4 Th/cmm (0.3-1.0); NEUTROPHILE ABSOLUTE 4.5 Th/cmm (1.8-8.0); PLATELET COUNT 268 Th/cmm (150-400); RED BLOOD COUNT 4.12 Mil/cmm (4.30-5.70); RED CELL DISTRIBUTION WIDTH 13.6 % (11.5-20.0); WHITE BLOOD COUNT 7.5 Th/cmm (4.8-10.8)
[2017-06-11 06:17] LABS: ANION GAP 11.2 (7.0-16.0); BUN - UREA NITROGEN 27 mg/dL (7-25); CALCIUM SERUM 9.3 mg/dL (8.6-10.3); CARBON DIOXIDE 20.8 mEq/L (21.0-31.0); CHLORIDE 106 mEq/L (98-107); CREATININE - SERUM 1.4 mg/dL (0.7-1.3); GFR AFRICAN-AMERICAN > 60.0 ml/min (>90); GFR NON AFRICAN-AMERICAN 54.4 ml/min; SODIUM SERUM 134 mEq/L (136-145)
[2017-06-11 06:23] LABS: GLUCOSE 164 mg/dL (70-105)
[2017-06-11] MEDS: INSULIN ASPART, RECOMBINANT 100 UNITS/ML SUBQ SCH ×2 (07:41→12:31)
[2017-06-11] MEDS: Pantoprazole 40 mg EC Tab PO SCH (08:13)
[2017-06-11] MEDS: Lidocaine 5% Patch TD SCH (08:20)
--- NOTE | 2017-06-11 15:42 | Internal Medicine Prog Note ---
Internal Medicine Subjective - Subjective Service Date: 06/11/17 ([id number] [facility] DC SUMMARY) Patient is:: asleep, interactive, arousable, in bed, denies any new complaints Patient Complaints of:: congestion, vomitting, unable to sleep Per staff patient has:: no adverse event, poor appetite, tolerating meds Internal Medicine Objective - Results Result Diagrams: 06/11/17 05:50 06/11/17 05:50 Recent Labs: Laboratory Last Values WBC 7.5 Th/cmm (4.8-10.8) 06/11/17 05:50 RBC 4.12 Mil/cmm (4.30-5.70) L 06/11/17 05:50 Hgb 12.7 gm/dL (12-16) 06/11/17 05:50 Hct 39.8 % (41.0-60) L 06/11/17 05:50 MCV 96.7 fl (80-99) 06/11/17 05:50 MCH 30.8 pg (26.0-30.0) H 06/11/17 05:50 MCHC Differential 31.9 pg (28.0-36.0) 06/11/17 05:50 RDW 13.6 % (11.5-20.0) 06/11/17 05:50 Plt Count 268 Th/cmm (150-400) 06/11/17 05:50 MPV 7.7 fl 06/11/17 05:50 Neutrophils % 60.0 % (40.0-80.0) 06/11/17 05:50 Lymphocytes % 29.3 % (20.0-50.0) 06/11/17 05:50 Monocytes % 5.8 % (2.0-10.0) 06/11/17 05:50 Eosinophils % 3.7 % (0.0-5.0) 06/11/17 05:50 Basophils % 1.2 % (0.0-2.0) 06/11/17 05:50 PT 12.7 SECONDS (9.5-11.5) H 06/07/17 23:59 INR 1.21 (0.5-1.4) 06/07/17 23:59 Sodium 134 mEq/L (136-145) L 06/11/17 05:50 Potassium 4.0 mEq/L (3.5-5.1) 06/11/17 05:50 Chloride 106 mEq/L (98-107) 06/11/17 05:50 Carbon Dioxide 20.8 mEq/L (21.0-31.0) L 06/11/17 05:50 Anion Gap 11.2 (7.0-16.0) 06/11/17 05:50 BUN 27 mg/dL (7-25) H 06/11/17 05:50 Creatinine 1.4 mg/dL (0.7-1.3) H 06/11/17 05:50 Est GFR ( Amer) > 60.0 ml/min (>90) 06/11/17 05:50 Est GFR (Non-Af Amer) 54.4 ml/min 06/11/17 05:50 BUN/Creatinine Ratio 19.3 06/11/17 05:50 Glucose 164 mg/dL (70-105) H D 06/11/17 05:50 POC Glucose 116 MG/DL (70 - 105) H 06/11/17 11:39 Hemoglobin A1c % 7.2 % (4.0-6.0) H 06/10/17 05:50 Calcium 9.3 mg/dL (8.6-10.3) 06/11/17 05:50 Total Bilirubin 0.3 mg/dL (0.3-1.0) 06/10/17 05:50 AST 15 U/L (13-39) 06/10/17 05:50 ALT 19 U/L (7-52) 06/10/17 05:50 Alkaline Phosphatase 126 U/L (34-104) H 06/10/17 05:50 Ammonia 35 umol/L (16-53) 06/10/17 05:50 Creatine Kinase 50 U/L (30-223) 06/07/17 23:59 Troponin I 0.01 ng/mL (0.01-0.05) 06/07/17 23:59 B-Natriuretic Peptide 13.9 pg/mL (5.0-100.0) 06/10/17 05:50 Total Protein 7.1 gm/dL (6.0-8.3) 06/10/17 05:50 Albumin 3.4 gm/dL (4.2-5.5) L 06/10/17 05:50 Globulin 3.7 gm/dL 06/10/17 05:50 Albumin/Globulin Ratio 0.9 (1.0-1.8) L 06/10/17 05:50 Triglycerides 104 mg/dL (<150) 06/07/17 23:59 Cholesterol 147 mg/dL (<200) 06/07/17 23:59 LDL Cholesterol Direct 88 mg/dL (75-193) 06/07/17 23:59 HDL Cholesterol 39 mg/dL (23-92) 06/07/17 23:59 Amylase 60 U/L (29-103) 06/07/17 23:59 Lipase 42 U/L (11-82) 06/07/17 23:59 Urine Source CLEAN C 06/08/17 06:45 Urine Color YELLOW 06/08/17 06:45 Urine Clarity CLEAR (CLEAR) 06/08/17 06:45 Urine pH 5.5 (4.6 - 8.0) 06/08/17 06:45 Ur Specific [place] 1.020 (1.005-1.030) 06/08/17 06:45 Urine Protein 30 mg/dL (NEGATIVE) H 06/08/17 06:45 Urine Glucose (UA) NEGATIVE mg/dL (NEGATIVE) 06/08/17 06:45 Urine Ketones NEGATIVE mg/dL (NEGATIVE) 06/08/17 06:45 Urine Blood NEGATIVE (NEGATIVE) 06/08/17 06:45 Urine Nitrate NEGATIVE (NEGATIVE) 06/08/17 06:45 Urine Bilirubin NEGATIVE (NEGATIVE) 06/08/17 06:45 Urine Urobilinogen 0.2 E.U./dL (0.2 - 1.0) 06/08/17 06:45 Ur Leukocyte Esterase NEGATIVE (NEGATIVE) 06/08/17 06:45 Urine RBC NONE SEEN /hpf (0-5) 06/08/17 06:45 Urine WBC 0-2 /hpf (0-5) 06/08/17 06:45 Ur Epithelial Cells OCCASIONAL /lpf (FEW) 06/08/17 06:45 Urine Bacteria FEW /hpf (NONE SEEN) 06/08/17 06:45 Urine Sperm FEW /hpf (NONE SEEN) 06/08/17 06:45 - Physical Exam Vitals and I&O: Vital Signs Temp 97.8 F 06/11/17 12:00 Pulse 70 06/11/17 12:00 Resp 19 04/29/18 12:00 BP 176/96 06/11/17 12:00 Pulse Ox 99 06/11/17 12:00 Intake & Output 06/10/17 06/11/17 06/11/17 18:59 06:59 18:59 Intake Total 1000 Balance 1000 Weight (lbs) 255 lb 255 lb Intake: Oral 1000 Other: # Voids 4 Weight Source Bedscale Bedscale Active Medications: Current Medications Acetaminophen (Tylenol Extra Strength) 1,000 mg PO Q6HR PRN PRN Reason: Pain (Mild) Stop: 08/07/17 09:15 Last Admin: 06/11/17 01:05 Dose: 1,000 mg Al Hydrox/Mg Hydrox/Simethicone (Maalox) 30 ml PO Q6H PRN PRN Reason: Dyspepsia Stop: 08/07/17 09:17 Albuterol Sulfate (Albuterol 2.5mg/3ml Neb Ud) 2.5 mg HHN Q2HRT PRN PRN Reason: Shortness of Breath or Wheeze Stop: 08/07/17 09:17 Atorvastatin Calcium (Lipitor) 80 mg PO HS [facility] PRN Reason: Protocol Stop: 08/07/17 20:59 Last Admin: 06/10/17 20:51 Dose: 80 mg Bisacodyl (Dulcolax 10 Mg Supp) 10 mg RC DAILY PRN PRN Reason: Constipation Stop: 08/07/17 09:15 Brimonidine Tartrate (Alphagan 0.1% Ophth Soln) 1 drop EACH EYE TID [facility] Stop: 08/07/17 13:59 Last Admin: 06/11/17 13:18 Dose: 1 drop Chlorthalidone (Hygroton) 50 mg PO DAILY [facility] Stop: 08/08/17 08:59 Last Admin: 06/11/17 08:15 Dose: 50 mg Docusate Sodium (Colace) 250 mg PO DAILY [facility] Stop: 08/08/17 08:59 Last Admin: 06/11/17 09:15 Dose: 250 mg Dorzolamide/Timolol (Cosopt Ophth Soln) 1 drop EACH EYE BID [facility] Stop: 08/07/17 16:59 Last Admin: 06/11/17 08:15 Dose: 1 drop Escitalopram Oxalate (Lexapro) 10 mg PO DAILY [facility] PRN Reason: Protocol Stop: 08/08/17 19:44 Last Admin: 06/11/17 08:14 Dose: 10 mg Gabapentin (Neurontin) 600 mg PO TID [facility] Stop: 08/07/17 13:59 Last Admin: 06/11/17 13:18 Dose: 600 mg Glipizide (Glucotrol) 5 mg PO HS [facility] Stop: 08/07/17 20:59 Last Admin: 06/10/17 20:51 Dose: 5 mg Glipizide (Glucotrol) 10 mg PO QDAC [facility] Stop: 08/08/17 07:29 Last Admin: 06/11/17 06:39 Dose: 10 mg Sodium Chloride (Nacl 0.9%) 1,000 mls @ 80 mls/hr IV .[id number] [facility] Stop: 08/07/17 09:29 Last Admin: 06/10/17 05:59 Dose: 80 mls/hr Insulin Aspart (Novolog) 0 units SUBQ ACHS [facility] PRN Reason: Protocol Stop: 08/07/17 11:29 Last Admin: 06/11/17 12:31 Dose: Not Given Latanoprost (Xalatan 0.005% Ophth Soln) 1 drop EACH EYE HS [facility] Stop: 08/07/17 20:59 Last Admin: 06/10/17 20:52 Dose: Not Given Levetiracetam (Keppra) 500 mg PO BID [facility] Stop: 08/07/17 16:59 Last Admin: 06/11/17 08:13 Dose: 500 mg Lidocaine (Lidoderm 5% Patch) 1 patch TD DAILY [facility] Stop: 08/08/17 08:59 Last Admin: 06/11/17 08:20 Dose: 1 patch Magnesium Hydroxide (Milk Of Magnesia) 30 ml PO HS [facility] Stop: 08/07/17 20:59 Last Admin: 06/10/17 20:52 Dose: Not Given Mupirocin (Bactroban Oint) 1 appl TP BID [facility] Stop: 08/08/17 16:59 Last Admin: 06/11/17 08:15 Dose: 1 appl Ondansetron HCl (Zofran) 4 mg IV Q8H PRN PRN Reason: Nausea / Vomiting Stop: 08/07/17 09:17 Pantoprazole Sodium (Protonix) 40 mg PO BID [facility] Stop: 08/07/17 16:59 Last Admin: 06/11/17 08:13 Dose: 40 mg Rivaroxaban (Xarelto) 20 mg PO DAILY [facility] Stop: 08/07/17 09:59 Last Admin: 06/11/17 08:13 Dose: 20 mg Tamsulosin HCl (Flomax) 0.4 mg PO DAILY [facility] Stop: 08/07/17 09:59 Last Admin: 06/11/17 08:13 Dose: 0.4 mg Vitamin D (Vitamin D) 1,000 iu PO DAILY [facility] Stop: 08/08/17 08:59 Last Admin: 06/11/17 08:13 Dose: 1,000 iu General: congested HEENT: NC/AT, PERRLA, poor dentition Neck: Supple, No thyromegaly, No LAD Lungs: CTAB Cardiovascular: RRR, Normal S1, Normal S2, with murmur Abdomen: soft, non-tender, globular, non-distended, positive bowel sound Extremities: excoriation Neurological: no change Internal Medicine Assmt/Plan - Assessment Assessment: abd pain w n/v htn obesity bph glaucoma cva - Plan Plan: dc planning in am cont on gentle hydration gi follow up cpm
--- NOTE | 2017-06-11 19:07 | Discharge Summary ---
DATE OF DISCHARGE: 06/11/2017 DATE OF DISCHARGE: 06/11/2017. DISCHARGE DIAGNOSES: Abdominal pain; intractable nausea and diarrhea, which has resolved; hypertension; hyperlipidemia; obesity; glaucoma; chronic kidney disease; benign prostatic hypertrophy; history of cerebrovascular accident. HISTORY OF PRESENT ILLNESS: A 62-year-old male, who is a resident of [facility], admitted to the med/surg unit due to 1-day history of abdominal pain and diarrhea. [facility]. For further management, the patient is admitted. PHYSICAL EXAMINATION: GENERAL: The patient is a well-developed, well-nourished, in no apparent distress. VITAL SIGNS: Stable. HEENT: Head normocephalic, atraumatic. NECK: Supple. No mass. LUNGS: Clear bilaterally. ABDOMEN: Soft, nontender. HOSPITAL COURSE: During the hospital stay, the patient was admitted to the med-surg unit. The patient had a consultation with GI and their plan of care for this patient was to check stool studies. If diarrhea is present withhold stool softeners and diet as tolerated and continue Protonix. The patient did not have any have any diarrhea and so stool culture for C. diff could not be collected. The patient was also swabbed for MRSA of the nares. The patient was positive. The patient was kept on Bactroban. From GI standpoint, the patient is stable for discharge and for outpatient endoscopy if symptoms persist. For this reason, the patient is stable for discharge. CONDITION UPON DISCHARGE: Fair. DISPOSITION: [facility]. [facility]# [id number]
== END 2017-06-11 21:40 | DRG 241 ==
LOC: ER 23:12 → MSI 06-08 08:55
PROVIDERS: ADMIT Internal Medicine; ATTEND Internal Medicine
DX: K29.70 Gastritis, unspecified, without bleeding (principal); N17.9 Acute kidney failure, unspecified; F03.90 Unspecified dementia, unspecified severity, without behavioral disturbance, psychotic disturbance, mood disturbance, and anxiety; Z68.41 Body mass index [BMI] 40.0-44.9, adult; E78.5 Hyperlipidemia, unspecified; E66.9 Obesity, unspecified; H40.9 Unspecified glaucoma; I12.9 Hypertensive chronic kidney disease with stage 1 through stage 4 chronic kidney disease, or unspecified chronic kidney disease; N18.9 Chronic kidney disease, unspecified; N40.0 Benign prostatic hyperplasia without lower urinary tract symptoms; Z86.73 Personal history of transient ischemic attack (TIA), and cerebral infarction without residual deficits; E86.0 Dehydration; R19.7 Diarrhea, unspecified; R11.2 Nausea with vomiting, unspecified; F33.8 Other recurrent depressive disorders
CPT/HCPCS: 36415-UA; 76700-TC; 80048-TC; 80053-TC; 80061-TC; 81001-TC; 82140-TC; 82150-TC; 82550-TC; 82948-90; 83036-90; 83690-TC; 83880-TC; 84484-TC; 85025-TC; 85610-TC; 87230-TC; 90732; 93005; 94760; J1815; J7030; Z7610

== ENCOUNTER 2017-10-05 20:37 | Inpatient (IN) | payer MEDICAID ==
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
[2017-10-05 21:06] LABS: % BASOPHILS 0.2 % (0.0-2.0); % EOSINOPHILS 4.7 % (0.0-5.0); % LYMPHOCYTES 31.2 % (20.0-50.0); % MONOCYTES 7.6 % (2.0-10.0); % NEUTROPHILS 56.3 % (40.0-80.0); EOSINOPHILE ABSOLUTE 0.3 Th/cmm (0.1-0.4); HEMATOCRIT 32.8 % (41.0-60); HEMOGLOBIN 10.7 gm/dL (12-16); LYMPHOCYTE ABSOLUTE 1.9 Th/cmm (1.5-3.0); MEAN CELL VOLUME 96.3 fl (80-99); MEAN CORPUSCULAR HEMOGLOBIN 31.3 pg (26.0-30.0); MEAN CORPUSCULAR HGB CONC 32.5 pg (28.0-36.0); MEAN PLATELET VOLUME 8.2 fl; MONOCYTE ABSOLUTE 0.5 Th/cmm (0.3-1.0); NEUTROPHILE ABSOLUTE 3.5 Th/cmm (1.8-8.0); PLATELET COUNT 217 Th/cmm (150-400); RED BLOOD COUNT 3.41 Mil/cmm (4.30-5.70); RED CELL DISTRIBUTION WIDTH 13.7 % (11.5-20.0); WHITE BLOOD COUNT 6.2 Th/cmm (4.8-10.8)
[2017-10-05 21:22] LABS: ANION GAP 8.2 (7.0-16.0); CALCIUM SERUM 9.4 mg/dL (8.6-10.3); CARBON DIOXIDE 30.4 mEq/L (21.0-31.0); CREATININE - SERUM 2.1 mg/dL (0.7-1.3); GFR AFRICAN-AMERICAN 41.2 ml/min (>90); GFR NON AFRICAN-AMERICAN 34.1 ml/min; POTASSIUM SERUM 4.6 mEq/L (3.5-5.1)
[2017-10-06] MEDS ORDERED: Magnesium Hydroxide (MOM) 30 mL UDC PO PRN (00:03)
[2017-10-06] MEDS ORDERED: Albuterol Nebulizer 2.5mg/3mL HHN PRN (00:05)
[2017-10-06] MEDS ORDERED: Ipratropium Neb 0.5 mg/2.5 mL UD HHN PRN (00:05)
[2017-10-06] MEDS: Sodium Chloride 0.9% 1,000 ML IV SCH (01:00)
[2017-10-06 06:47] VITALS: BP 141/90
[2017-10-06] MEDS: INSULIN ASPART, RECOMBINANT 100 UNITS/ML SUBQ SCH ×4 (07:37→21:05)
--- NOTE | 2017-10-06 08:08 | Diagnostic Imaging Report ---
CHEST X-RAY: AP view INDICATION: Pneumonia COMPARISON: None FINDINGS: Increased interstitial lung markings are noted. There is no focal consolidation or pleural effusions The heart is normal in size. Atherosclerosis is noted with mildly tortuous aorta. Degenerative changes of the spine are noted. IMPRESSION: Increased interstitial lung markings favoring chronic lung changes. No evidence of galo CHF. No focal consolidation identified. Atherosclerosis with mildly tortuous aorta.
[2017-10-06] MEDS ORDERED: ALFUZOSIN HCL 10 MG PO SCH (09:00)
--- NOTE | 2017-10-06 12:34 | Consultation ---
DATE OF CONSULTATION: 10/06/2017 REQUESTING PHYSICIAN: Dr. Long. REASON FOR CONSULTATION: Depression and agitation. HISTORY OF PRESENT ILLNESS: This patient is a 62-year-old male known to me from the previous psychiatric consultation. The patient is a resident of the [facility]. Psychiatric consultation has been called to address the issue of the depression. The patient is admitted here for uncontrolled diabetes mellitus and agitation. Chart is reviewed. Staff was spoken to. The patient is interviewed. The patient is reporting that he has been dealing okay with the depression with the venlafaxine and risperidone, but the patient is stating that he is getting frustrated and the patient is reported to have made a suicidal statement, but during the interview, he is denying any of those statements. Sleep and appetite prior to the hospitalization are reported to be fair. The patient is motivated to seek treatment. PAST PSYCHIATRIC HISTORY: The patient denies any prior psychiatric hospitalizations. SOCIAL HISTORY: The patient is a resident of the [facility]. The patient is reporting that he has been staying over there since last July. SUBSTANCE ABUSE HISTORY: None. PHYSICAL OR SEXUAL ABUSE HISTORY: None. MENTAL STATUS EXAMINATION: The patient is a 62-year-old moderately obese, superficially cooperative. Eye contact is mildly depressed. Affect is appropriate. The patient is not suicidal or homicidal. Insight and judgment is noted to be fair. Impulse control is noted to be fair. The patient denies any hallucinations or delusions are noted. The patient is motivated to seek treatment. The patient is not presenting with any threats to harm self or others. DIAGNOSTIC IMPRESSION: Major depressive disorder, recurrent and moderate. PLAN: To continue the Effexor and Risperdal and follow the patient up as needed. Thank you, Dr. Long, for allowing me to participate in the care of the patient. JOB# [id number]
--- NOTE | 2017-10-06 12:58 | Internal Medicine Prog Note ---
Internal Medicine Subjective - Subjective Service Date: 10/06/17 ([id number] dc summary) Internal Medicine Objective - Results Result Diagrams: 10/05/17 21:01 10/05/17 21: Recent Labs: Laboratory Last Values WBC 6.2 Th/cmm (4.8-10.8) 10/05/17 21: RBC 3.41 Mil/cmm (4.30-5.70) L 10/05/17 21: Hgb 10.7 gm/dL (12-16) L 10/05/17 21: Hct 32.8 % (41.0-60) L 10/05/17 21: MCV 96.3 fl (80-99) 10/05/17 21: MCH 31.3 pg (26.0-30.0) H 10/05/17: MCHC Differential 32.5 pg (28.0-36.0) 10/05/17: RDW 13.7 % (11.5-20.0) 10/05/17: Plt Count 217 Th/cmm (150-400) 10/05/17 21: MPV 8.2 fl 10/05/17 21: Neutrophils % 56.3 % (40.0-80.0) 10/05/17 21: Lymphocytes % 31.2 % (20.0-50.0) 10/05/17 21: Monocytes % 7.6 % (2.0-10.0) 10/05/17 21: Eosinophils % 4.7 % (0.0-5.0) 10/05/17 21: Basophils % 0.2 % (0.0-2.0) 10/05/17 21: Sodium 135 mEq/L (136-145) L 10/05/17 21: Potassium 4.6 mEq/L (3.5-5.1) 10/05/17 21: Chloride 101 mEq/L (98-107) 10/05/17 21: Carbon Dioxide 30.4 mEq/L (21.0-31.0) 10/05/17 21: Anion Gap 8.2 (7.0-16.0) 10/05/17 21: BUN 40 mg/dL (7-25) H 10/05/17 21:01 Creatinine 2.1 mg/dL (0.7-1.3) H 10/05/17 21:01 Est GFR ( Amer) 41.2 ml/min (>90) 10/05/17 21:01 Est GFR (Non-Af Amer) 34.1 ml/min 10/05/17 21:01 BUN/Creatinine Ratio 19.0 10/05/17 21:01 Glucose 368 mg/dL (70-105) H 10/05/17 21:01 POC Glucose 221 MG/DL (70 - 105) H 10/06/17 11:49 Calcium 9.4 mg/dL (8.6-10.3) 10/05/17 21:01 - Physical Exam Vitals and I&O: Vital Signs Temp 97.7 F 10/06/17 11:53 Pulse 66 10/06/17 11:53 Resp 20 10/06/17 11:53 BP 143/84 10/06/17 11:53 Pulse Ox 100 10/06/17 11:53 Intake & Output 10/05/17 10/06/17 10/06/17 18:59 06:59 18:59 Output Total 700 Balance -700 Weight (lbs) 255 lb 291 lb Output: Urine 700 Other: # Bowel Movements 0 Weight Source Bedscale Active Medications: Current Medications Acetaminophen (Tylenol) 650 mg PO Q6HR PRN PRN Reason: Pain or Fever >101 Stop: 12/05/17 00:02 Last Admin: 10/06/17 11:25 Dose: 650 mg Albuterol Sulfate (Albuterol 2.5mg/3ml Neb Ud) 2.5 mg HHN Q2HRT PRN PRN Reason: Shortness of Breath or Wheeze Stop: 12/05/17 00:04 Atorvastatin Calcium (Lipitor) 80 mg PO HS [facility]; Protocol Stop: 12/05/17 20:59 Bisacodyl (Dulcolax 10 Mg Supp) 10 mg RC DAILY PRN PRN Reason: Constipation Stop: 12/05/17 00:02 Brimonidine Tartrate (Alphagan 0.2% Ophth Soln) 1 drop EACH EYE TID [facility] Stop: 12/05/17 08:59 Last Admin: 10/06/17 08:49 Dose: 1 drop Chlorthalidone (Hygroton) 50 mg PO DAILY [facility] Stop: 12/05/17 08:59 Cholecalciferol (Vitamin D3) 1,000 iu PO DAILY [facility] Stop: 12/05/17 08:59 Last Admin: 10/06/17 08:48 Dose: 1,000 iu Docusate Sodium (Colace) 250 mg PO DAILY [facility] Stop: 12/05/17 08:59 Last Admin: 10/06/17 08:48 Dose: 250 mg Dorzolamide/Timolol (Cosopt Ophth Soln) 1 drop EACH EYE BID [facility] Stop: 12/05/17 08:59 Last Admin: 10/06/17 08:50 Dose: 1 drop Gabapentin (Neurontin) 600 mg PO TID [facility] Stop: 12/05/17 08:59 Last Admin: 10/06/17 08:48 Dose: 600 mg Glipizide (Glucotrol) 5 mg PO QPM [facility] Stop: 12/05/17 16:59 Glipizide (Glucotrol) 10 mg PO QDAC [facility] Stop: 12/05/17 07:29 Last Admin: 10/06/17 08:48 Dose: 10 mg Sodium Chloride (Nacl 0.9%) 1,000 mls @ 80 mls/hr IV .[id number] [facility] Stop: 12/05/17 03:29 Last Admin: 10/06/17 01:00 Dose: 80 mls/hr Insulin Aspart (Novolog) 0 units SUBQ ACHS [facility]; Protocol Stop: 12/05/17 07:29 Last Admin: 10/06/17 07:37 Dose: Not Given Ipratropium [place] (Atrovent Neb 0.5mg/2.5ml) 0.5 mg HHN Q2HRT PRN PRN Reason: Shortness of Breath or Wheeze Stop: 12/05/17 00:04 Latanoprost (Xalatan 0.005% Oph Soln) 1 drop EACH EYE HS [facility] Stop: 12/05/17 20:59 Levetiracetam (Keppra) 500 mg PO BID [facility] Stop: 12/05/17 08:59 Last Admin: 10/06/17 08:48 Dose: 500 mg Lorazepam (Ativan) 1 mg IV Q4H PRN; Protocol PRN Reason: Seizure Stop: 12/05/17 00:04 Magnesium Hydroxide (Milk Of Magnesia) 30 ml PO HS PRN PRN Reason: Constipation Stop: 12/05/17 00:02 Miscellaneous (Alfuzosin Hcl [Uroxatral]) 10 mg PO DAILY [facility] Stop: 12/05/17 08:59 Miscellaneous (Clinical Monitoring) 1 ea MC DAILY PRN PRN Reason: RENAL Stop: 12/05/17 09:52 Nitroglycerin (Nitrostat) 0.4 mg SL Q5MIN PRN PRN Reason: Chest Pain Stop: 12/05/17 00:04 Ondansetron HCl (Zofran) 4 mg IV Q8H PRN PRN Reason: Nausea / Vomiting Stop: 12/05/17 00:04 Risperidone (Risperdal) 0.5 mg PO HS [facility]; Protocol Stop: 12/05/17 20:59 Rivaroxaban (Xarelto) 20 mg PO QPM [facility] Stop: 12/05/17 16:59 Venlafaxine HCl (Effexor Xr) 75 mg PO DAILY [facility]; Protocol Stop: 12/05/17 08:59 Zolpidem Tartrate (Ambien) 10 mg PO HS PRN PRN Reason: Insomnia Stop: 12/05/17 00:04
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
[2017-10-06 23:22] LABS: A1C % 7.8 % (4.0-6.0)
[2017-10-07] MEDS: Sodium Chloride 0.9% 1,000 ML IV SCH (04:30)
[2017-10-07 06:40] LABS: % MONOCYTES 6.9 % (2.0-10.0); % NEUTROPHILS 56.1 % (40.0-80.0); EOSINOPHILE ABSOLUTE 0.3 Th/cmm (0.1-0.4); HEMATOCRIT 34.2 % (41.0-60); HEMOGLOBIN 11.1 gm/dL (12-16); LYMPHOCYTE ABSOLUTE 2.2 Th/cmm (1.5-3.0); MEAN CELL VOLUME 96.9 fl (80-99); MEAN CORPUSCULAR HEMOGLOBIN 31.3 pg (26.0-30.0); MEAN CORPUSCULAR HGB CONC 32.3 pg (28.0-36.0); MEAN PLATELET VOLUME 8.5 fl; MONOCYTE ABSOLUTE 0.5 Th/cmm (0.3-1.0); NEUTROPHILE ABSOLUTE 3.8 Th/cmm (1.8-8.0); PLATELET COUNT 231 Th/cmm (150-400); RED BLOOD COUNT 3.53 Mil/cmm (4.30-5.70); RED CELL DISTRIBUTION WIDTH 13.6 % (11.5-20.0); WHITE BLOOD COUNT 6.8 Th/cmm (4.8-10.8)
[2017-10-07] MEDS: INSULIN ASPART, RECOMBINANT 100 UNITS/ML SUBQ SCH (06:48)
[2017-10-07 06:54] LABS: ANION GAP 7.7 (7.0-16.0); CALCIUM SERUM 9.5 mg/dL (8.6-10.3); CARBON DIOXIDE 30.8 mEq/L (21.0-31.0); CREATININE - SERUM 1.7 mg/dL (0.7-1.3); GFR AFRICAN-AMERICAN 52.6 ml/min (>90); GFR NON AFRICAN-AMERICAN 43.5 ml/min; POTASSIUM SERUM 4.5 mEq/L (3.5-5.1)
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
== END 2017-10-07 15:00 | DRG 420 ==
LOC: ER 20:37 → MSI 22:10
PROVIDERS: ADMIT Internal Medicine; ATTEND Internal Medicine
DX: E11.65 Type 2 diabetes mellitus with hyperglycemia (principal); E11.22 Type 2 diabetes mellitus with diabetic chronic kidney disease; N18.3 Chronic kidney disease, stage 3 (moderate); E66.01 Morbid (severe) obesity due to excess calories; I12.9 Hypertensive chronic kidney disease with stage 1 through stage 4 chronic kidney disease, or unspecified chronic kidney disease; D64.9 Anemia, unspecified; E78.5 Hyperlipidemia, unspecified; N40.0 Benign prostatic hyperplasia without lower urinary tract symptoms; F33.9 Major depressive disorder, recurrent, unspecified; Z98.49 Cataract extraction status, unspecified eye; Z82.49 Family history of ischemic heart disease and other diseases of the circulatory system; Z81.8 Family history of other mental and behavioral disorders; Z68.42 Body mass index [BMI] 45.0-49.9, adult; I69.954 Hemiplegia and hemiparesis following unspecified cerebrovascular disease affecting left non-dominant side
CPT/HCPCS: 36415-UA; 71045-TC; 80048-TC; 82948-90; 83036-90; 85025-TC; 93005; 94760; J1815; J7030; Z7610